=== PATIENT | male | born 1995 | race Caucasian/White ===

== ENCOUNTER 2016-10-02 11:59 | Emergency (ER) | payer SELFPAY ==
--- NOTE | 2016-10-02 12:56 | ER Document Report ---
HPI - HPI Patient complains to provider of: sore throat Onset: Other - 2-3 days Onset/Duration: Persistent Quality of pain: Achy Severity: Severe Pain Level: 4 Context: Patient presents to the emergency department with complaints of sore throat. He reports started 2-3 days ago. Today anytime he coughs pain increased. He reports fever last night. He also reports he has been around people with strep throat. Denies vomiting diarrhea. Speaks in a clear voice no distress. Associated Symptoms: Fever, Sore throat Exacerbated by: Coughing Relieved by: Denies Similar symptoms previously: No Recently seen / treated by doctor: No - REPRODUCTIVE Reproductive: DENIES: : - DERM Skin Color: Normal Past Medical History - General Information source: Patient - Social History Smoking Status: Unknown if Ever Smoked Cigarette use (# per day): No - vapes Frequency of alcohol use: Occasional Drug Abuse: None Occupation: [employer] Family History: Other - patient states none. denies: Arthritis, CAD, CVA, DM, Hyperlipidemia, Hypertension, Malignancy, Thyroid Disfunction Patient has suicidal ideation: No Patient has homicidal ideation: No - Medical History Medical History: Negative Renal/ Medical History: Denies: Hx Peritoneal Dialysis Surgical Hx: Negative - Immunizations Immunizations up to date: No Hx Diphtheria, Pertussis, Tetanus Vaccination: Yes Vertical Provider Document - CONSTITUTIONAL Agree With Documented VS: Yes Exam Limitations: No Limitations General Appearance: WD/WN, No Apparent Distress - INFECTION CONTROL TRAVEL OUTSIDE OF THE [place] IN LAST 30 DAYS: No - HEENT HEENT: Atraumatic, Normocephalic, Pharyngeal Erythema - No peritonsillar abscess good clear voice no trismus, no trouble swallowing. negative: Conjuctival Injection, Pharyngeal Exudate, Pharyngeal Tenderness, Tympanic Membrane Red, Tympanic Membrane Bulging - NECK Neck: Normal Inspection, Supple. negative: Lymphadenopathy-Left, Lymphadenopathy-Right - RESPIRATORY Respiratory: Breath Sounds Normal, No Respiratory Distress - NO COUGH NOTED O2 Sat by Pulse Oximetry: 98 - CARDIOVASCULAR Cardiovascular: Regular Rate - MUSCULOSKELETAL/EXTREMETIES Musculoskeletal/Extremeties: MAEW, FROM - NEURO Level of Consciousness: Awake, Alert, Appropriate Motor/Sensory: No Motor Deficit - DERM Integumentary: Warm, Dry Course - Re-evaluation Re-evalutation: 10/02/16 13:31 Patient instructed on negative strep test with throat culture pending. Patient instructed to monitor his temperature take Tylenol as indicated. He verbalized understanding to all instructions. - Vital Signs Vital signs: Temp Pulse Resp BP Pulse Ox 98.1 F 87 18 129/94 H 98 10/02/16 12:16 10/02/16 12:16 10/02/16 12:16 10/02/16 12:16 10/02/16 12:16 Discharge - Discharge Clinical Impression: Sore throat, Elevated blood pressure reading Condition: Stable Disposition: HOME, SELF-CARE Instructions: Sore Throat ([facility]) Additional Instructions: *You have been evaluated for a sore throat, Elevated blood pressure reading *Your rapid strep test was negative. A throat culture is pending. You will be contacted should you need antibiotics *Warm salt water gargles and throat lozenges for comfort *Do not let anyone drink/eat after you *Good hand washing *Follow-up with a primary care provider for recheck within one week *Return to ED for worsening condition change, needs, concerns, trouble breathing Monitor your blood pressure. Your blood pressure was elevated today. This may be because you were anxious, in pain or because you need medication. It is important to follow up with your primary care provider for full evaluation. Forms: Elevated Blood Pressure, Return to Work
[2016-10-02 14:03] VITALS: BP 138/68
== END 2016-10-02 14:01 | disposition home or self-care (01) ==
LOC: ER 11:59
DX: J02.9 Acute pharyngitis, unspecified (principal); R03.0 Elevated blood-pressure reading, without diagnosis of hypertension; Z20.818 Contact with and (suspected) exposure to other bacterial communicable diseases; Z82.49 Family history of ischemic heart disease and other diseases of the circulatory system
CPT/HCPCS: 87070; 87077; 87880; 99283

== ENCOUNTER 2016-11-17 14:31 | Emergency (ER) | payer SELFPAY ==
--- NOTE | 2016-11-17 17:03 | ER Document Report ---
HPI - HPI Patient complains to provider of: left eye swelling Pain Level: 3 Context: 21 yo male c/o swelling and redness to right eye x 1 day. no eye pain, no visual change. + itch. mild tearing. no crusting. non contact wearer Associated Symptoms: None Exacerbated by: Denies Relieved by: Denies Similar symptoms previously: No Recently seen / treated by doctor: No - ROS Systems Reviewed and Negative: Yes All other systems reviewed and negative - REPRODUCTIVE Reproductive: DENIES: : - DERM Skin Color: Normal Past Medical History - General Information source: Patient - Social History Smoking Status: Current Every Day Smoker Frequency of alcohol use: None Drug Abuse: None Lives with: Family Family History: Other - patient states none. denies: Arthritis, CAD, CVA, DM, Hyperlipidemia, Hypertension, Malignancy, Thyroid Disfunction Patient has suicidal ideation: No Patient has homicidal ideation: No - Medical History Medical History: Negative Renal/ Medical History: Denies: Hx Peritoneal Dialysis - Immunizations Immunizations up to date: No Hx Diphtheria, Pertussis, Tetanus Vaccination: Yes Vertical Provider Document - CONSTITUTIONAL Agree With Documented VS: Yes Exam Limitations: No Limitations General Appearance: WD/WN, Obese - INFECTION CONTROL TRAVEL OUTSIDE OF THE [place] IN LAST 30 DAYS: No - HEENT HEENT: Atraumatic Notes: mild soft tissue swelling to right upper lid. + conjunctival injection. no flourescein uptake. - NECK Neck: Normal Inspection, Supple - RESPIRATORY Respiratory: Breath Sounds Normal, No Respiratory Distress O2 Sat by Pulse Oximetry: 98 - CARDIOVASCULAR Cardiovascular: Regular Rate, Regular Rhythm - NEURO Level of Consciousness: Awake, Alert, Appropriate - DERM Integumentary: Warm, Dry Course - Vital Signs Vital signs: Temp Pulse Resp BP Pulse Ox 98.4 F 71 16 153/74 H 98 11/17/16 14:34 11/17/16 14:34 11/17/16 14:34 11/17/16 14:34 11/17/16 14:34 Discharge - Discharge Clinical Impression: Allergic conjunctivitis Qualifiers: Laterality: right Qualified Code(s): H10.11 - Acute atopic conjunctivitis, right eye Condition: Stable Instructions: Conjunctivitis, Allergic, Eyedrop Use ([facility]) Additional Instructions: cool compresses to eye for comfort Benadryl 50mg every 6h eye drops as prescribed follow up primary care if symptoms persist or worsen Prescriptions: Olopatadine HCl [Pataday] 1 drop OD BID PRN #1 bottle PRN Reason: Forms: Return to Work
[2016-11-17 17:26] VITALS: BP 123/74
== END 2016-11-17 17:30 | disposition home or self-care (01) ==
LOC: ER 14:31
DX: H10.11 Acute atopic conjunctivitis, right eye (principal); F17.200 Nicotine dependence, unspecified, uncomplicated
CPT/HCPCS: 99283

== ENCOUNTER 2017-01-08 15:39 | Emergency (ER) | payer SELFPAY ==
[2017-01-08 15:49] VITALS: BP 142/67
--- NOTE | 2017-01-08 16:21 | ER Document Report ---
ED ENT - General Chief Complaint: Congestion Stated Complaint: DIZZINESS,COUGH,SORE THROAT Time Seen by Provider: 01/08/17 16:05 Mode of Arrival: Ambulatory Information source: Patient TRAVEL OUTSIDE OF THE [place] IN LAST 30 DAYS: No - HPI Patient complains to provider of: Throat problem Onset: Last week Onset/Duration: Persistent Quality of pain: Achy Severity: Moderate Pain Level: 3 Associated symptoms: Congestion, Cough, Sore throat Notes: Patient is a 21-year-old male presenting to the emergency room today complaining of cough, chest pain, sore throat, symptoms have been going on for the past week but worsening over the past few days, he denies a fever, cough is nonproductive, he vapes - Related Data Allergies/Adverse Reactions: No Known Allergies Allergy (Verified 01/08/17 15:48) Past Medical History - General Information source: Patient - Social History Smoking Status: Current Every Day Smoker Lives with: Spouse/Significant other Family History: Other - patient states none. denies: Arthritis, CAD, CVA, DM, Hyperlipidemia, Hypertension, Malignancy, Thyroid Disfunction Renal/ Medical History: Denies: Hx Peritoneal Dialysis - Immunizations Immunizations up to date: No Hx Diphtheria, Pertussis, Tetanus Vaccination: Yes Review of Systems - Review of Systems Constitutional: No symptoms reported EENT: See HPI Cardiovascular: See HPI Respiratory: No symptoms reported Gastrointestinal: No symptoms reported Genitourinary: No symptoms reported Male Genitourinary: No symptoms reported Musculoskeletal: No symptoms reported Skin: No symptoms reported Hematologic/Lymphatic: No symptoms reported Neurological/Psychological: No symptoms reported Physical Exam - Vital signs Vitals: Temp Pulse Resp BP Pulse Ox 98.1 F 95 20 142/67 H 98 01/08/17 15:48 01/08/17 15:48 01/08/17 15:48 01/08/17 15:48 01/08/17 15:48 - Notes Notes: - General General appearance: Appears well, Alert In distress: None - HEENT Head: Normocephalic, Atraumatic Eyes: Normal Conjunctiva: Normal Extraocular movements intact: Yes Eyelashes: Normal Pupils: PERRL - Respiratory Respiratory status: No respiratory distress - Cardiovascular Rhythm: Regular - Abdominal Inspection: Normal - Back Back: Normal - Extremities General upper extremity: Normal inspection General lower extremity: Normal inspection - Neurological Neuro grossly intact: Yes Orientation: AAOx4 Delgado Coma Scale Eye Opening: Spontaneous Delgado Coma Scale Verbal: Oriented Delgado Coma Scale Motor: Obeys Commands Delgado Coma Scale Total: 15 - Psychological Associated symptoms: Normal affect, Normal mood - Skin Skin Temperature: Warm Skin Moisture: Dry Skin Color: Normal - HEENT Pharynx: Erythema, Exudate, Tonsillar hypertrophy Course - Re-evaluation Re-evalutation: 01/08/17 16:19 Patient has bilateral tonsillar hypertrophy with erythema and exudates consistent with strep pharyngitis, he will be started on antibiotics for this, advised to follow-up with her primary care provider or return if symptoms worsen , patient acknowledges understanding and agreement with this plan - Vital Signs Vital signs: Temp Pulse Resp BP Pulse Ox 98.1 F 95 20 142/67 H 98 01/08/17 15:48 01/08/17 15:48 01/08/17 15:48 01/08/17 15:48 01/08/17 15:48 Discharge - Discharge Clinical Impression: Strep pharyngitis Condition: Stable Disposition: HOME, SELF-CARE Instructions: Strep Throat ([facility]) Additional Instructions: Follow up with your primary care provider in one to 2 days. Return to the emergency room immediately if symptoms worsen or any additional concerns. Prescriptions: Penicillin V Potassium [Penicillin Vk 500 mg Tablet] 500 mg PO BID #20 tablet
== END 2017-01-08 16:26 | disposition home or self-care (01) ==
LOC: ER 15:39
DX: J02.0 Streptococcal pharyngitis (principal); R09.81 Nasal congestion; R42 Dizziness and giddiness; R05 Cough; J02.9 Acute pharyngitis, unspecified; F17.200 Nicotine dependence, unspecified, uncomplicated
CPT/HCPCS: 99283

== ENCOUNTER 2017-05-11 18:57 | Emergency (ER) | payer OTHER ==
[2017-05-11] MEDS ORDERED: IBUPROFEN 800 MG TABLET PO ONE (20:46)
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
[2017-05-11] MEDS ORDERED: HYDROCODONE/ACETAMINOPHEN 5-325 MG (6 TAB/ER DISP) PO PRN (21:48)
[2017-05-11 22:26] VITALS: BP 134/70
== END 2017-05-11 22:26 | disposition home or self-care (01) ==
LOC: ER 18:57
DX: S82.832A Other fracture of upper and lower end of left fibula, initial encounter for closed fracture (principal); V49.50XA Passenger injured in collision with unspecified motor vehicles in traffic accident, initial encounter; R03.0 Elevated blood-pressure reading, without diagnosis of hypertension
CPT/HCPCS: 99283; 73564; L1830

== ENCOUNTER 2017-05-13 10:09 | Emergency (ER) | payer OTHER ==
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
[2017-05-13 11:20] VITALS: BP 127/71
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
== END 2017-05-13 11:28 | disposition home or self-care (01) ==
LOC: ER 10:09
DX: S82.101A Unspecified fracture of upper end of right tibia, initial encounter for closed fracture (principal); X58.XXXA Exposure to other specified factors, initial encounter
CPT/HCPCS: 99283

== ENCOUNTER 2017-05-20 11:49 | Emergency (ER) | payer OTHER ==
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
[2017-05-20 13:57] VITALS: BP 123/70
== END 2017-05-20 13:57 | disposition home or self-care (01) ==
LOC: ER 11:49
DX: S82.401D Unspecified fracture of shaft of right fibula, subsequent encounter for closed fracture with routine healing (principal); M25.569 Pain in unspecified knee; Z87.891 Personal history of nicotine dependence; V87.7XXD Person injured in collision between other specified motor vehicles (traffic), subsequent encounter
CPT/HCPCS: 99281

== ENCOUNTER 2017-05-23 01:13 | Emergency (ER) | payer OTHER ==
[2017-05-23] MEDS ORDERED: NORMAL SALINE 1000 ML 1,000 ML IV ONE (01:42)
[2017-05-23] MEDS ORDERED: ONDANSETRON HCL INJ/PF 4 MG/2 ML SDV IV ONE (01:43)
[2017-05-23 02:31] LABS: ALANINE AMINOTRANSFERASE 61 U/L (21-72); ALBUMIN 4.7 g/dL (3.5-5.0); ALKALINE PHOSPHATASE 86 U/L (38-126); ANION GAP 16 (5-19); ASPARTATE AMINO TRANSFERASE 29 U/L (17-59); BILIRUBIN,DIRECT 0.4 mg/dL (0.0-0.4); BILIRUBIN,TOTAL 1.8 mg/dL (0.2-1.3); BLOOD UREA NITROGEN 17 mg/dL (7-20); CALCIUM 9.8 mg/dL (8.4-10.2); CARBON DIOXIDE 23 mmol/L (22-30); CHLORIDE 103 mmol/L (98-107); GLUCOSE 120 mg/dL (75-110); LIPASE 39.1 U/L (23-300); POTASSIUM 4.7 mmol/L (3.6-5.0); SODIUM 141.8 mmol/L (137-145); TOTAL PROTEIN 7.9 g/dL (6.3-8.2)
[2017-05-23] MEDS ORDERED: ONDANSETRON ODT 4 MG TAB (6 TAB/ER DISP) PO PRN (02:57)
--- NOTE | 2017-05-23 02:57 | ER Document Report ---
ED General - General Chief Complaint: Nausea/Vomiting Stated Complaint: NAUSEA,VOMITING Time Seen by Provider: 05/23/17 01:41 Notes: Patient is a 22-year-old male who presents with nausea, vomiting and diarrhea for the past 12 hours. Patient reports that he this started after he ate spaghetti made at home. Patient reports that everybody else who ate the spaghetti has also been sick with the same symptoms. He states he has been unable to tolerate fluids since onset of the symptoms. Nothing worsens the symptoms. He has not been able to try anything for improvement of symptoms. He has not seen his primary doctor regarding today's concerns. He denies any focal abdominal pain, headache, neck pain, shortness of breath or chest pain. No history of similar symptoms in the past. TRAVEL OUTSIDE OF THE [place] IN LAST 30 DAYS: No - Related Data Allergies/Adverse Reactions: No Known Allergies Allergy (Verified 05/20/17 11:53) Past Medical History - General Information source: Patient - Social History Smoking Status: Current Every Day Smoker Chew tobacco use (# tins/day): No Frequency of alcohol use: Occasional Drug Abuse: None Lives with: Spouse/Significant other Family History: Other - patient states none. denies: Arthritis, CAD, COPD, CVA , DM, Hyperlipidemia, Hypertension, Malignancy, Thyroid Disfunction Patient has suicidal ideation: No Patient has homicidal ideation: No Renal/ Medical History: Denies: Hx Peritoneal Dialysis Musculoskeltal Medical History: Reports Hx Musculoskeletal Trauma - Avulsion fracture to the right knee Traumatic Medical History: Reports: Hx Fractures - Fracture to the right knee - Immunizations Immunizations up to date: No Hx Diphtheria, Pertussis, Tetanus Vaccination: Yes Review of Systems - Review of Systems Notes: Constitutional: Negative for fever. HENT: Negative for sore throat. Eyes: Negative for visual changes. Cardiovascular: Negative for chest pain. Respiratory: Negative for shortness of breath. Gastrointestinal: Positive for vomiting and diarrhea Genitourinary: Negative for dysuria. Musculoskeletal: Negative for back pain. Skin: Negative for rash. Neurological: Negative for headaches, weakness or numbness. 10 point ROS negative except as marked above and in HPI. Physical Exam - Vital signs Vitals: Temp Pulse Resp BP Pulse Ox 98.2 F 104 H 22 H 131/79 H 96 05/23/17 01:30 05/23/17 01:30 05/23/17 01:30 05/23/17 01:30 05/23/17 01:30 Interpretation: Tachycardic Notes: PHYSICAL EXAMINATION: GENERAL: Well-appearing, well-nourished and in no acute distress. HEAD: Atraumatic, normocephalic. EYES: Pupils equal round and reactive to light, extraocular movements intact, sclera anicteric, conjunctiva are normal. ENT: nares patent, oropharynx clear without exudates. Moderately dry mucous membranes. NECK: Normal range of motion, supple without lymphadenopathy LUNGS: Breath sounds clear to auscultation bilaterally and equal. No wheezes rales or rhonchi. HEART: Regular rate and rhythm without murmurs ABDOMEN: Soft, nontender, normoactive bowel sounds. No guarding, no rebound. No masses appreciated. EXTREMITIES: Normal range of motion, no pitting or edema. No cyanosis. NEUROLOGICAL: No focal neurological deficits. Moves all extremities spontaneously and on command. PSYCH: Normal mood, normal affect. SKIN: Warm, Dry, normal turgor, no rashes or lesions noted. Course - Re-evaluation Re-evalutation: 05/23/17 02:55 Presentation of an overall well-appearing patient in no acute distress with complaints of nausea, vomiting, diarrhea. This is consistent with likely viral gastroenteritis. Patient has no abdominal tenderness on exam and specifically no tenderness in the RLQ, LLQ, RUQ. Overall well hydrated on exam. Able to tolerate oral intake here in the emergency department. Low clinical suspicion for any acute life-threatening etiology based on exam and history including acute cholecystitis, SBO, appendicitis, nephrolithiasis, or pylonephritis. CMP without evidence of acute hepatitis or significant dehydration. At this time will discharge with return precautions and follow-up recommendations. Verbal discharge instructions given a the bedside and opportunity for questions given. Medication warnings reviewed. Patient is in agreement with this plan and has verbalized understanding of return precautions and the need for primary care follow-up in the next 24-72 hours. - Vital Signs Vital signs: Temp Pulse Resp BP Pulse Ox 98.2 F 81 18 121/72 95 05/23/17 01:30 05/23/17 03:21 05/23/17 03:21 05/23/17 03:21 05/23/17 03:21 - Laboratory Result Diagrams: 05/23/17 01:50 Laboratory results interpreted by me: 05/23/17 01:50 Glucose 120 H Total Bilirubin 1.8 H Discharge - Discharge Clinical Impression: Food contamination Nausea & vomiting Qualifiers: Vomiting type: unspecified Vomiting Intractability: non-intractable Qualified Code(s): R11.2 - Nausea with vomiting, unspecified Condition: Good Disposition: HOME, SELF-CARE Additional Instructions: Your symptoms are likely due to a foodborne contamination. You can take over- the-counter loperamide also known as Imodium as needed for diarrhea per box instructions. Continue to stay hydrated with plenty of solution such as Gatorade or Pedialyte. You are being prescribed Zofran to take as needed for nausea and vomiting. Please return if you develop severe abdominal pain, pass out, become unable to tolerate any oral fluids for 12 more hours, or any other symptoms that are concerning to you.
[2017-05-23 03:22] VITALS: BP 121/72
== END 2017-05-23 03:21 | disposition home or self-care (01) ==
LOC: ER 01:13
DX: T62.91XA Toxic effect of unspecified noxious substance eaten as food, accidental (unintentional), initial encounter (principal); R11.2 Nausea with vomiting, unspecified; R19.7 Diarrhea, unspecified; F17.200 Nicotine dependence, unspecified, uncomplicated
CPT/HCPCS: 99284; 96361; 96374; 36415; 83690; 80053; J2405; J7030

== ENCOUNTER 2018-03-03 21:58 | Emergency (ER) | payer SELFPAY ==
[2018-03-03] MEDS ORDERED: KETOROLAC TROMETHAMINE INJ/PF 30 MG/1 ML SDV IV ONE (23:10)
[2018-03-03] MEDS ORDERED: ONDANSETRON HCL INJ/PF 4 MG/2 ML SDV IV ONE (23:10)
--- NOTE | 2018-03-03 23:12 | ER Document Report ---
ED General - General Chief Complaint: Low Back Pain Stated Complaint: LOWER LEFT BACK PAIN Time Seen by Provider: 03/03/18 23:01 Mode of Arrival: Ambulatory Information source: Patient Notes: Patient presents complaining of left lower back pain off and on since yesterday. Patient does complain of some nausea. Patient denies any fever or urinary symptoms. Patient presently states that pain is only very minimal at this time. Patient denies any radiculopathy or paresthesia. TRAVEL OUTSIDE OF THE [place] IN LAST 30 DAYS: No - HPI Onset: Yesterday Onset/Duration: Waxing and waning Quality of pain: Achy Pain Level: 1 Associated symptoms: denies: Nonproductive cough, Productive cough, Fever, Nausea, Vomiting Exacerbated by: Movement Relieved by: Denies Similar symptoms previously: No Recently seen / treated by doctor: No - Related Data Allergies/Adverse Reactions: No Known Allergies Allergy (Verified 05/20/17 11:53) Past Medical History - General Information source: Patient - Social History Smoking Status: Current Every Day Smoker Smoking Education Provided: Yes Frequency of alcohol use: Occasional Drug Abuse: None Occupation: [employer] Lives with: Family Family History: Other - patient states none. denies: Arthritis, CAD, COPD, CVA , DM, Hyperlipidemia, Hypertension, Malignancy, Thyroid Disfunction Patient has suicidal ideation: No Patient has homicidal ideation: No Renal/ Medical History: Denies: Hx Peritoneal Dialysis Musculoskeletal Medical History: Reports Hx Musculoskeletal Trauma - Avulsion fracture to the right knee Traumatic Medical History: Reports: Hx Fractures - Fracture to the right knee Surgical Hx: Negative - Immunizations Immunizations up to date: No Hx Diphtheria, Pertussis, Tetanus Vaccination: Yes Review of Systems - Review of Systems Constitutional: No symptoms reported. denies: Fever EENT: No symptoms reported Cardiovascular: No symptoms reported Respiratory: No symptoms reported. denies: Cough, Short of breath Gastrointestinal: No symptoms reported. denies: Abdominal pain, Vomiting Genitourinary: Flank pain. denies: Dysuria Male Genitourinary: No symptoms reported Musculoskeletal: Back pain Skin: No symptoms reported Hematologic/Lymphatic: No symptoms reported Neurological/Psychological: No symptoms reported. denies: Weakness, Headaches Physical Exam - Vital signs Vitals: Temp Pulse Resp BP Pulse Ox 98.4 F 76 18 155/77 H 97 03/03/18 22:03 03/03/18 22:03 03/03/18 22:03 03/03/18 22:03 03/03/18 22:03 - General General appearance: Appears well, Alert In distress: None - HEENT Head: Normocephalic, Atraumatic Eyes: Normal Conjunctiva: Normal Nasal: Normal Mouth/Lips: Normal Mucous membranes: Normal Neck: Normal, Supple. No: Lymphadenopathy - Respiratory Respiratory status: No respiratory distress Chest status: Nontender Breath sounds: Normal. No: Rales, Rhonchi, Stridor, Wheezing Chest palpation: Normal - Cardiovascular Rhythm: Regular Heart sounds: S1 appreciated, S2 appreciated Murmur: No - Abdominal Inspection: Morbidly Obese Distension: No distension Tenderness: Nontender Organomegaly: No organomegaly - Back Back: CVA tenderness - left - Extremities General upper extremity: Normal inspection, Normal ROM General lower extremity: Normal inspection, Normal ROM - Neurological Neuro grossly intact: Yes Cognition: Normal Delgado Coma Scale Eye Opening: Spontaneous Mathews Coma Scale Verbal: Oriented Delgado Coma Scale Motor: Obeys Commands Delgado Coma Scale Total: 15 - Psychological Associated symptoms: Normal affect, Normal mood - Skin Skin Temperature: Warm Skin Moisture: Dry Skin Color: Normal Course - Re-evaluation Re-evalutation: 03/04/18 00:34 Patient presents with intermittent left flank pain. No concern for any obstructive uropathy. Urine culture is pending at this time. Patient denies any urinary complaints. Patient with incidental finding of an umbilical hernia , cholelithiasis as well as a hepatomegaly and splenomegaly. The patient presents with low back pain without signs of spinal cord compression, cauda equina syndrome, infection, aneurysm, or other serious etiology. The patient is neurologically intact. Given the extremely risk of these diagnoses further testing and evaluation for these possibilities does not appear to be indicated at this time. Patient has been instructed to return if the symptoms worsen or change in any way. - Vital Signs Vital signs: Temp Pulse Resp BP Pulse Ox 98.4 F 59 L 18 119/64 99 03/03/18 22:03 03/04/18 01:16 03/04/18 01:16 03/04/18 01:16 03/04/18 01:16 - Laboratory Result Diagrams: 03/03/18 23:39 03/03/18 23:39 Laboratory results interpreted by me: 03/03/18 23:39 Urine Blood MODERATE H Ur Leukocyte Esterase TRACE H Labs- Entire Visit 03/03/18 03/03/18 03/03/18 23:39 23:39 23:39 WBC 8.6 RBC 4.55 Hgb 14.1 Hct 40.4 MCV 89 MCH 31.1 MCHC 35.0 RDW 12.8 Plt Count 205 Seg Neutrophils % 63.3 Lymphocytes % 26.1 Monocytes % 7.6 Eosinophils % 2.5 Basophils % 0.5 Absolute Neutrophils 5.4 Absolute Lymphocytes 2.2 Absolute Monocytes 0.7 Absolute Eosinophils 0.2 Absolute Basophils 0.0 Sodium 137.9 Potassium 4.3 Chloride 101 Carbon Dioxide 25 Anion Gap 12 BUN 16 Creatinine 0.95 Est GFR ( Amer) > 60 Est GFR (Non-Af Amer) > 60 Glucose 108 Calcium 9.5 Urine Color STRAW Urine Appearance CLEAR Urine pH 6.0 Ur Specific [place] 1.008 Urine Protein NEGATIVE Urine Glucose (UA) NEGATIVE Urine Ketones NEGATIVE Urine Blood MODERATE H Urine Nitrite NEGATIVE Urine Bilirubin NEGATIVE Urine Urobilinogen NEGATIVE Ur Leukocyte Esterase TRACE H Urine WBC (Auto) 7 Urine RBC (Auto) 2 Urine Mucus (Auto) RARE Urine Ascorbic Acid NEGATIVE - Diagnostic Test Radiology reviewed: Reports reviewed Discharge - Discharge Clinical Impression: Flank pain, Hepatosplenomegaly Cholelithiasis Qualifiers: Cholelithiasis location: gallbladder Cholecystitis presence: without cholecystitis Biliary obstruction: without biliary obstruction Qualified Code(s) : K80.20 - Calculus of gallbladder without cholecystitis without obstruction Condition: Stable Disposition: HOME, SELF-CARE Instructions: Gallbladder Disease ([facility]), Low Back Pain ([facility]), Muscle Strain ( [facility]), Warm Packs ([facility]) Additional Instructions: Return immediately for any new or worsening symptoms Followup with your primary care provider, call tomorrow to make a followup appointment Your CT scan made incidental findings of an enlarged liver and spleen as well as gallstones and an umbilical hernia. He should follow-up with her primary doctor for further evaluation of these findings. Return for any fever, increased pain, vomiting lightheadedness, or any concerning symptoms. Prescriptions: Cyclobenzaprine HCl [Flexeril 10 Mg Tablet] 10 mg PO TID #15 tablet Naproxen [Naprosyn 250 Nmg Tablet] 1 tab PO BID #14 tablet Forms: Smoking Cessation Education, Return to Work [facility] - Follow up as needed [facility] [Provider Group] - Follow up as needed
[2018-03-04 00:07] LABS: ABSOLUTE EOSINOPHILS # (AUTO) 0.2 10^3/uL (0.0-0.6); ABSOLUTE LYMPHOCYTES (AUTO) 2.2 10^3/uL (0.5-4.7); ABSOLUTE MONOCYTES (AUTO) 0.7 10^3/uL (0.1-1.4); ABSOLUTE NEUT (AUTO) 5.4 10^3/uL (1.7-8.2); BASOPHILS % (AUTO) 0.5 % (0-2); EOSINOPHILS % (AUTO) 2.5 % (0-6); HEMATOCRIT 40.4 % (37.9-51.0); HEMOGLOBIN 14.1 g/dL (13.5-17.0); LYMPHOCYTES % (AUTO) 26.1 % (13-45); MEAN CORPUSCULAR HEMOGLOBIN 31.1 pg (27.0-33.4); MEAN CORPUSCULAR VOLUME 89 fl (80-97); MONOCYTES % (AUTO) 7.6 % (3-13); PLATELET COUNT 205 10^3/uL (150-450); RED BLOOD COUNT 4.55 10^6/uL (4.35-5.55); RED CELL DISTRIBUTION WIDTH 12.8 % (11.5-14.0); SEGMENTED NEUTROPHILS % (AUTO) 63.3 % (42-78); TOTAL CELLS COUNTED % (AUTO) 100 %; WHITE BLOOD COUNT 8.6 10^3/uL (4.0-10.5)
[2018-03-04 00:14] LABS: APPEARANCE,URINE CLEAR; BILIRUBIN,URINE NEGATIVE (NEGATIVE); COLOR,URINE STRAW; GLUCOSE, URINE NEGATIVE (NEGATIVE); KETONES,URINE NEGATIVE (NEGATIVE); LEUKOCYTE ESTERASE,URINE TRACE (NEGATIVE); NITRITE,URINE NEGATIVE (NEGATIVE); PROTEIN,URINE NEGATIVE (NEGATIVE); URINE SPECIFIC GRAVITY 1.008; UROBILINOGEN,URINE NEGATIVE mg/dL (<2.0)
[2018-03-04 00:21] LABS: ANION GAP 12 (5-19); BLOOD UREA NITROGEN 16 mg/dL (7-20); CALCIUM 9.5 mg/dL (8.4-10.2); CARBON DIOXIDE 25 mmol/L (22-30); CHLORIDE 101 mmol/L (98-107); GLUCOSE 108 mg/dL (75-110); POTASSIUM 4.3 mmol/L (3.6-5.0); SODIUM 137.9 mmol/L (137-145)
--- NOTE | 2018-03-04 00:29 | RADIOLOGY REPORT (SQ) ---
EXAM DESCRIPTION: CT ABDOMEN WITHOUT IV CONTRAST COMPLETED DATE/TME: 03/03/2018 23:10 CLINICAL HISTORY: 22 years Male L flank pain COMPARISON: None. TECHNIQUE: Contiguous axial images obtained through the abdomen and pelvis without IV contrast. Reformatted images obtained. This exam was performed according to our department optimization program which includes automated exposure control, adjustment of the mA and/or kv according to patient size and/or use of iterative reconstruction technique. FINDINGS: Liver is enlarged measuring 21 cm. Spleen is enlarged. Unremarkable pancreas. No adrenal masses. The kidneys appear unremarkable. No hydronephrosis or definite ureteral calculi. The gallbladder is present with numerous gallstones noted. No aneurysmal dilatation of the aorta. No bowel obstruction. Scattered mesenteric lymph nodes. Small fat-containing umbilical hernia. No free pelvic fluid. IMPRESSION: No evidence of hydronephrosis or obstructive uropathy Hepatosplenomegaly Cholelithiasis
[2018-03-04 01:17] VITALS: BP 119/64
== END 2018-03-04 01:16 | disposition home or self-care (01) ==
LOC: ER 21:58
DX: K80.20 Calculus of gallbladder without cholecystitis without obstruction (principal); K42.9 Umbilical hernia without obstruction or gangrene; R16.2 Hepatomegaly with splenomegaly, not elsewhere classified; R10.9 Unspecified abdominal pain; M54.5 Low back pain; F17.200 Nicotine dependence, unspecified, uncomplicated
CPT/HCPCS: 99284; 96374; 36415; 87086; 85025; 80048; 81001; 76380; J1885; J2405

== ENCOUNTER 2020-02-27 23:30 | Emergency (ER) | payer SELFPAY ==
--- NOTE | 2020-02-27 23:47 | ER Document Report ---
ED Medical Screen (RME) - General Stated Complaint: POSSIBLE INJURY TO RIGHT ANKLE Time Seen by Provider: 02/27/20 23:44 Mode of Arrival: Ambulatory Information source: Patient Notes: 24-year-old male coming in today with right heel pain. Symptoms for several days. No injuries. General: No acute distress Musculoskeletal tenderness to palpation circumferentially around the right calcaneus. No bony deformities. No swelling. DP PT pulses intact. I have greeted and performed a rapid initial assessment of this patient. A comprehensive ED assessment and evaluation of the patient, analysis of test re sults and completion of the medical decision making process will be conducted by additional ED providers. TRAVEL OUTSIDE OF THE [place] IN LAST 30 DAYS: No - Related Data Allergies/Adverse Reactions: No Known Allergies Allergy (Verified 05/20/17 11:53) Past Medical History Renal/ Medical History: Denies: Hx Peritoneal Dialysis Musculoskeltal Medical History: Reports Hx Musculoskeletal Trauma - Avulsion fracture to the right knee Traumatic Medical History: Reports: Hx Fractures - Fracture to the right knee - Immunizations Immunizations up to date: No Hx Diphtheria, Pertussis, Tetanus Vaccination: Yes
== END 2020-02-28 01:46 | disposition left against medical advice (07) ==
LOC: ER 23:30
DX: M79.671 Pain in right foot (principal); Z53.20 Procedure and treatment not carried out because of patient's decision for unspecified reasons
CPT/HCPCS: 99281

== ENCOUNTER 2020-02-28 21:24 | Emergency (ER) | payer SELFPAY ==
[2020-02-28] MEDS ORDERED: IBUPROFEN 800 MG TABLET PO ONE (22:45)
--- NOTE | 2020-02-28 22:48 | ER Document Report ---
ED Medical Screen (RME) - General Stated Complaint: POSSIBLE RIGHT FOOT INJURY Time Seen by Provider: 02/28/20 22:40 Mode of Arrival: Ambulatory Information source: Patient Notes: 24-year-old male coming in today with severe right foot and ankle pain. No known injury. Was here last night and eloped. General exam: Looks uncomfortable Musculoskeletal mild soft tissue swelling of the right ankle and right foot. Tenderness around the calcaneal region. I have greeted and performed a rapid initial assessment of this patient. A comprehensive ED assessment and evaluation of the patient, analysis of test results and completion of the medical decision making process will be conducted by additional ED providers. TRAVEL OUTSIDE OF THE [place] IN LAST 30 DAYS: No - Related Data Allergies/Adverse Reactions: No Known Allergies Allergy (Verified 05/20/17 11:53) Past Medical History Renal/ Medical History: Denies: Hx Peritoneal Dialysis Musculoskeltal Medical History: Reports Hx Musculoskeletal Trauma - Avulsion fracture to the right knee Traumatic Medical History: Reports: Hx Fractures - Fracture to the right knee - Immunizations Immunizations up to date: No Hx Diphtheria, Pertussis, Tetanus Vaccination: Yes Physical Exam - Vital signs Vitals: Temp Pulse Resp BP Pulse Ox 98.3 F 103 H 17 149/75 H 98 02/28/20 21:49 02/28/20 21:49 02/28/20 21:49 02/28/20 21:49 02/28/20 21:49 Course - Vital Signs Vital signs: Temp Pulse Resp BP Pulse Ox 98.3 F 103 H 17 149/75 H 98 02/28/20 21:49 02/28/20 21:49 02/28/20 21:49 02/28/20 21:49 02/28/20 21:49
--- NOTE | 2020-02-28 23:32 | RADIOLOGY REPORT (SQ) ---
CLINICAL HISTORY: pain/swelling COMPARISON: None. TECHNIQUE: XR FOOT 3 OR MORE VIEWS 02/28/2020 10:45 PM CDT FINDINGS: There is no fracture. Joint spaces are preserved. Soft tissues are unremarkable. IMPRESSION: No acute osseous findings.
--- NOTE | 2020-02-28 23:33 | RADIOLOGY REPORT (SQ) ---
CLINICAL HISTORY: pain/swelling COMPARISON: None. TECHNIQUE: XR ANKLE 3 OR MORE VIEWS 02/28/2020 10:45 PM CDT FINDINGS: There is no fracture. Joint spaces are preserved. There is diffuse soft tissue swelling surrounding the ankle. IMPRESSION: No acute osseous findings.
--- NOTE | 2020-02-29 01:26 | ER Document Report ---
ED General - General Chief Complaint: Foot Injury Stated Complaint: POSSIBLE RIGHT FOOT INJURY Time Seen by Provider: 02/28/20 22:40 Mode of Arrival: Ambulatory Information source: Patient Notes: Patient is a obese 24-year-old male coming in today with right foot and right ankle pain which is atraumatic to the best of his knowledge. Worse over the past 3 days or so. 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 Most the time he has the ability to sit but when customers come in and need his assistance he has to get up and walk around. His tells me that he ambulates putting pressure on the lateral soles of his feet. TRAVEL OUTSIDE OF THE [place] IN LAST 30 DAYS: No - Related Data Allergies/Adverse Reactions: No Known Allergies Allergy (Verified 02/28/20 23:36) Past Medical History - General Information source: Patient - Social History Smoking Status: Former Smoker Frequency of alcohol use: None Drug Abuse: None Family History: Other - patient states none. denies: Arthritis, CAD, COPD, CVA, DM, Hyperlipidemia, Hypertension, Malignancy, Thyroid Disfunction Renal/ Medical History: Denies: Hx Peritoneal Dialysis Musculoskeletal Medical History: Reports Hx Musculoskeletal Trauma - Avulsion fracture to the right knee Traumatic Medical History: Reports: Hx Fractures - Fracture to the right knee - Immunizations Immunizations up to date: No Hx Diphtheria, Pertussis, Tetanus Vaccination: Yes Review of Systems - Review of Systems Notes: Constitutional: No fevers. No chills. EENT: No eye redness. No eye pain. No ear pain. No sore throat. Cardiovascular: No chest pain. No palpitations. Respiratory: No cough. No shortness of breath. No respiratory distress. Gastrointestinal: No abdominal pain. No nausea, vomiting, or diarrhea. Genitourinary: Atraumatic. No lesions. No pain. No discharge. Musculoskeletal: Atraumatic. No deformities. Positive for pain and swelling right foot and ankle Skin: No rash or lesions. Lymphatic: No swollen lymph nodes. Neurologic: No headache. No syncope. Psychiatric: No suicidal or homicidal ideation. Physical Exam - Vital signs Vitals: Temp Pulse Resp BP Pulse Ox 98.3 F 103 H 17 149/75 H 98 02/28/20 21:49 02/28/20 21:49 02/28/20 21:49 02/28/20 21:49 02/28/20 21:49 - Notes Notes: General: Well-developed, well-nourished. In no acute distress. Non-toxic appearing. Cardiac: Well-perfused. Regular rate and rhythm. No murmurs, rubs, or gallops. Pulmonary: No respiratory distress. No cyanosis. Bilateral lung fiels are clear to auscultation. Abdominal: Non-distended. Non-rigid. Bowels sounds are present in all four quadrants. No guarding or rebound. HEENT: Head is atraumatic. Conjunctivae not reddened. No tearing. PERRL. EOMI. Orbits atraumatic. No periorbital swelling or erythema. Oropharynx is without erythema, swelling, or exudates. Neck: Supple. No adenopathy. No meningismus. Dermatologic: Warm with good turgor. No rash. Atraumatic. Chest: Atraumatic. No chest wall tenderness to palpation. Musculoskeletal: Moderate soft tissue swelling right foot and ankle. Tender to palpate in the periphery around the calcaneus. No bony deformities. Dorsalis pedis and posterior tibial pulses readily palpable bilaterally. No calf tenderness bilaterally. Genitourinary: Examination deferred Neurologic: No gross neurologic deficits. Psychiatric: Normal mood. Course - Re-evaluation Re-evalutation: 02/29/20 01:23 X-rays are reviewed and negative. Suspect some degree of plantar fasciitis as well as soft tissue injury from an abnormal gait. Recommend special insoles for his tennis shoes, ice water soaks, Medrol Dosepak to help with the inflammation, Tylenol and Motrin [id number]. Recommend follow-up with orthopedist if no improvement in the next week or 2. [facility]. - Vital Signs Vital signs: Temp Pulse Resp BP Pulse Ox 98.3 F 103 H 17 149/75 H 98 02/28/20 21:49 02/28/20 21:49 02/28/20 21:49 02/28/20 21:49 02/28/20 21:49 - Diagnostic Test Radiology reviewed: Reports reviewed Discharge - Discharge Clinical Impression: Plantar fasciitis, Elevated blood pressure reading Condition: Good Disposition: HOME, SELF-CARE Instructions: Plantar Fasciitis or Heel Spur ([facility]) Prescriptions: Methylprednisolone [Medrol Dosepack (4 mg/Tab) 21 Tab/Dosepak] 4 mg PO ASDIR PRN #21 tab.ds.pk PRN Reason: Forms: Elevated Blood Pressure
[2020-02-29 02:02] VITALS: BP 152/71
== END 2020-02-29 02:02 | disposition home or self-care (01) ==
LOC: ER 21:24
DX: M72.2 Plantar fascial fibromatosis (principal); R03.0 Elevated blood-pressure reading, without diagnosis of hypertension; E66.9 Obesity, unspecified
CPT/HCPCS: 99284